=== PATIENT | female | born 1955 | race Caucasian/White ===

== ENCOUNTER 2016-11-22 08:28 | Outpatient (CLI) | payer OTHER ==
[2016-11-22 12:37] LABS: Bilirubin Negative (Negative); Blood, Urine Negative (Negative); Glucose, Urine (Dipstick) Negative (Negative); Ketone, Urine Negative (Negative); Nitrite Negative (Negative); Protein, Urine (Dipstick) Negative (Neg-Trace); Urobilinogen 0.2 mg/dL (0.2-1.0)
[2016-11-22 13:19] LABS: ALT (SGPT) 24 U/L (0-55); AST (SGOT) 26 U/L (5-34); Alkaline Phosphatase 58 U/L (40-150); Anion Gap 14 mmol/L (10-20); BUN (Urea Nitrogen) 24 mg/dL (9.8-20.1); Bilirubin, Total 0.5 mg/dL (0.2-1.2); Calc. Creatinine Clearance 0 mL/min (70-130); Calcium 9.6 mg/dL (7.8-10.44); Carbon Dioxide 25 mmol/L (23-31); Chloride 104 mmol/L (98-107); Estimated GFR-MDRD 49; Globulin 2.7 g/dL (2.4-3.5); LDL Cholesterol, Calculated 157 mg/dL
[2016-11-22 14:17] LABS: Hemoglobin A1c 5.2 % (4.0-6.0)
[2016-11-22 14:37] LABS: #Basophils 0.1 thou/uL (0.0-0.2); #Eosinphils 0.1 thou/uL (0.0-0.7); #Lymphocytes 1.8 thou/uL (1.20-3.40); #Monocytes 0.6 thou/uL (0.11-0.59); #Neutrophils 2.1 thou/uL (1.40-6.50); %Eosinophils 2.6 % (0.0-10.0); %Lymphocytes 37.6 % (21.0-51.0); %Monocytes 12.7 % (0.0-10.0); Hematocrit 43.6 % (36.0-47.0); Mean Platelet Volume 10.4 fL (7.4-10.4); Red Blood Cell (RBC) Count 4.22 mill/uL (4.20-5.40); White Blood Cell (WBC) Count 4.7 thou/uL (4.8-10.8)
== END 2016-11-22 08:29 ==
LOC: NAVSJIPCSP 08:28
PROVIDERS: ATTEND Internal Medicine
DX: Z51.81 Encounter for therapeutic drug level monitoring (principal); Z79.899 Other long term (current) drug therapy
CPT/HCPCS: 36415; 80053; 80061; 81003; 83036; 84443; 85025

== ENCOUNTER 2018-06-01 11:24 | Outpatient (CLI) | payer BC ==
--- NOTE | 2018-06-01 12:12 | RAD ---
TWO VIEWS RIGHT HIP: Comparison: None. History: Right hip pain for two months. FINDINGS: Two views of the right hip shows no evidence of acute fracture or dislocation. No significant degener ative changes are seen. There is a surgical clip in the right pelvis. IMPRESSION: No significant right hip abnormality. POS: [facility]
== END 2018-06-01 11:25 | disposition home or self-care (01) ==
LOC: NAV RAD 11:24
PROVIDERS: ATTEND Internal Medicine
DX: M25.551 Pain in right hip (principal)

== ENCOUNTER 2020-06-13 12:19 | Outpatient (CLI) | payer BC ==
--- NOTE | 2020-06-13 13:39 | RAD ---
LUMBAR SPINE: 06/13/20 Two views. HISTORY: Lumbar radiculopathy. FINDINGS: Lumbar vertebrae maintain height. There is a mild anterolisthesis of L3-4 measured at approximately 3 to 4 mm. Loss of disc space at L3-4. The other disc spaces are relatively well preserved. Facet hype rtrophy is noted. No other evidence of spondylolisthesis. IMPRESSION: Mild anterolisthesis of L3-4 with disc narrowing at L3-4. Facet hypertrophy. Mild degenerative spurri ng. POS: [facility]
== END 2020-06-13 12:20 | disposition home or self-care (01) ==
LOC: NAV ERS 12:19
PROVIDERS: ATTEND Internal Medicine
DX: M47.26 Other spondylosis with radiculopathy, lumbar region (principal); M43.16 Spondylolisthesis, lumbar region
CPT/HCPCS: 72100

== ENCOUNTER 2021-09-28 18:47 | Emergency (ER) | payer BC, MEDICARE ==
[2021-09-28] MEDS ORDERED: Acetaminophen 500 MG TAB ONE (19:11)
[2021-09-28 19:27] LABS: #Basophils 0.1 thou/uL (0.0-0.2); #Eosinphils 0.1 thou/uL (0.0-0.7); #Lymphocytes 1.9 thou/uL (1.20-3.40); #Monocytes 0.9 thou/uL (0.11-0.59); #Neutrophils 7.1 thou/uL (1.40-6.50); %Basophils 0.8 % (0.0-1.0); %Eosinophils 0.5 % (0.0-10.0); %Lymphocytes 19.2 % (21.0-51.0); %Monocytes 8.6 % (0.0-10.0); %Neutrophils 70.9 % (42.0-75.0); Hemoglobin 11.8 g/dL (12.0-16.0); Mean Corpuscular HGB CONC 32.8 g/dL (32.0-36.0); Mean Corpuscular Hemoglobin 32.6 pg (27.0-31.0); Mean Corpuscular Volume 99.4 fL (78.0-98.0); Mean Platelet Volume 10.9 fL (7.4-10.4); Platelet Count 187 thou/uL (130-400); RBC Distribution Width 11.2 % (11.5-14.5); Red Blood Cell (RBC) Count 3.62 mill/uL (4.20-5.40)
[2021-09-28 19:29] LABS: Bilirubin Negative (Negative); Blood, Urine Negative (Negative); Clarity Clear (Clear); Glucose, Urine (Dipstick) Negative (Negative); Ketone, Urine 15 mg/dL (Negative); Leukocyte Negative (Negative); Nitrite Negative (Negative); Protein, Urine (Dipstick) Negative (Neg-Trace); Specific Gravity, Urine 1.015 (1.005-1.030); Urobilinogen 0.2 mg/dL (Less than 2)
[2021-09-28 19:44] LABS: Anion Gap 11 mmol/L (10-20); BUN (Urea Nitrogen) 7 mg/dL (9.8-20.1); Calc. Creatinine Clearance 0 mL/min (70-130); Calcium 9.6 mg/dL (7.8-10.44); Carbon Dioxide 27 mmol/L (23-31); Chloride 98 mmol/L (98-107); Glucose 98 mg/dL (80-115); Sodium 133 mmol/L (136-145)
== END 2021-09-28 20:08 | disposition home or self-care (01) ==
LOC: NAV ERS 18:47
DX: Z48.01 Encounter for change or removal of surgical wound dressing (principal); E87.6 Hypokalemia; R50.82 Postprocedural fever; G47.00 Insomnia, unspecified; Z87.891 Personal history of nicotine dependence
CPT/HCPCS: 36415; 71045; 80048; 81003; 85025

== ENCOUNTER 2023-07-05 08:34 | Emergency (ER) | payer MEDICARE ==
[2023-07-05 08:59] LABS: Bilirubin Negative (Negative); Blood, Urine Large (Negative); Clarity Turbid (Clear); Glucose, Urine (Dipstick) Negative (Negative); Ketone, Urine Negative (Negative); Leukocyte Negative (Negative); Nitrite Negative (Negative); Protein, Urine (Dipstick) 100 mg/dL (Neg-Trace); Urobilinogen 0.2 mg/dL (Less than 2); pH, Urine 5.5 (5.0-9.0)
[2023-07-05 09:02] LABS: CAUTI Indications for Culture Acute Hematuria; RBC/HPF Greater than 50 HPF (0-3)
[2023-07-05 09:03] LABS: Bacteria/HPF 1+ HPF (None Seen); Squamous Epithelial 0-3 HPF (0-3)
[2023-07-05 09:04] LABS: Urine Culture Reflex No No
[2023-07-05] MEDS ORDERED: Sulfameth/Trimethoprim DS 800-160mg TAB ONE (09:28)
== END 2023-07-05 09:39 | disposition home or self-care (01) ==
LOC: NAV ERS 08:34
DX: N39.0 Urinary tract infection, site not specified (principal); Z87.891 Personal history of nicotine dependence
CPT/HCPCS: 81001; 87086; 99283

== ENCOUNTER 2024-08-24 14:24 | Emergency (ER) | payer MEDICARE ==
[2024-08-24] MEDS ORDERED: Ketorolac Tromethamine 30 MG (1 mL) VIAL ONE (15:25)
[2024-08-24] MEDS ORDERED: Cyclobenzaprine 10 MG TAB ONE (15:25)
== END 2024-08-24 16:16 | disposition home or self-care (01) ==
LOC: NAV ERS 14:24
DX: M62.830 Muscle spasm of back (principal); Z87.891 Personal history of nicotine dependence; X50.0XXA Overexertion from strenuous movement or load, initial encounter
CPT/HCPCS: 96372; 99283; J1885